=== PATIENT | female | born 1930 | race Caucasian/White ===

== ENCOUNTER 2016-06-02 10:36 | Emergency (ER) | payer OTHER, MEDICARE ==
[~2016-06-02] VITALS: Ht 172.7 cm; Wt 104.3 kg
--- NOTE | 2016-06-02 11:11 | ED UPPER/LOWER EXTREMITY COMPL ---
History of Present Illness General Chief Complaint: Lower Extremity Problems Stated Complaint: LT KNEE PAIN Source: patient Exam Limitations: no limitations Vital Signs & Intake/Output Vital Signs & Intake/Output Vital Signs Date Time Temp Pulse Resp B/P Pulse O2 O2 Flow FiO2 Ox Delivery Rate 06/02 1242 97.9 81 18 185/100 97 Room Air 06/02 1043 97.7 83 20 197/100 97 Room Air Allergies Coded Allergies: No Known Drug Allergies (06/02/16) Reconcile Medications Hydrocodone/Acetaminophen (Vicodin 5-300 MG Tablet) 5 MG-300 MG TABLET 1 TAB PO BID PRN PAIN DO NOT TAKE THIS MEDICATION WHILE OPERATING MOTOR VEHICLES Triage Note: C/O LEFT KNEE PAIN X 3 DAYS. DENIES FALL OR INJURY. LEFT KNEE REPLACEMENT 2012. Triage Nurses Notes Reviewed? yes Onset: Gradual Duration: constant Timing: recent history Severity: severe Severity Numbers: 9 Method of Injury: unknown Modifying Factors: Worsens With: movement. HPI: Patient is a 86-year-old female with a past medical history of left knee replacement performed by performed at [facility] remotely who since emergency and that she had a gradual onset of a three-day history of worsening left knee pain. Patient denies any mechanism of injury denies any trauma or etiology of symptoms. Denies any increased physical activity in which she does use a walker for fall prevention. Patient has been taking Aleve with minimal relief of symptoms. Denies any hip pain ankle pain and leg swelling and is otherwise without complaints. Patient states at rest she has no pain (ERIN HIDALGO) Past History Travel History Traveled to [place] past 21 day No Medical History Any Pertinent Medical History? see below for history Musculoskeletal: osteoarthritis Surgical History Surgical History: non-contributory Psychosocial History What is your primary language Divehi Tobacco Use: Never used ETOH Use: denies use Family History Hx Contributory? No (ERIN HIDALGO) Review of Systems Review of Systems Constitutional: Reports: no symptoms. EENTM: Reports: no symptoms. Respiratory: Reports: no symptoms. Cardiovascular: Reports: no symptoms. Gastrointestinal/Abdominal: Reports: no symptoms. Genitourinary: Reports: no symptoms. Musculoskeletal: Reports: see HPI, joint pain. Skin: Reports: no symptoms. Neurological/Psychological: Reports: no symptoms. Hematologic/Endocrine: Reports: no symptoms. Immunological: Reports: no symptoms. All Other Systems: Reviewed and Negative (ERIN HIDALGO) Physical Exam Physical Exam General Appearance: no apparent distress, alert, comfortable Neurologic/Tendon: normal sensation, normal motor functions, normal tendon functions, responds to pain, no evidence tendon injury, no pulse deficit Skin: intact, normal color, warm/dry Comments: Well-developed well-nourished person in no acute distress HEENT: Normal EENT exam,. Neck: Supple, no lymphadenopathy, normal range of motion without pain or tenderness Back: Nontender, no CVA tenderness. Cardiovascular: Regular rate and rhythms no murmurs rubs or gallops, normal JVP Respiratory: Chest nontender. No respiratory distress.breath sounds clear to auscultation bilaterally Abdomen: Soft, nontender nondistended, no appreciable organomegaly. Normal bowel sounds. No ascites Extremity: No edema, no calf tenderness to palpation, normal and equal pulses. Bilateral hip nontender normal inspection full active range of motion Left knee normal inspection medial and lateral joint line point tenderness noted , full active range of motion noted negative valgus stress test negative varus stress test negative anterior drawer test negative posterior drawer test full active range of motion Left leg dermatomes intact pedal pulse +2 Neuro: Alert oriented x3, motor sensory normal, Skin: No appreciable rash on exposed skin, skin is warm and dry. Psych: Mood and affect is normal, memory and judgment is normal. (ERIN HIDALGO) Progress Differential Diagnosis: arterial insufficiency, compartment syndrome, contusion, dislocation, DVT, fracture, gout, septic arthritis, sprain, tendon injury Plan of Care: Orders Procedure Date/time Status CASE MANAGEMENT CONSULT 06/02 1246 Active No osseous injuries noted on x-rays patient had stated gait noted by me Patient was given copy of x-rays for follow-up with orthopedic doctor. Patient was strongly advised to continue and always use her walker for fall prevention. Discussed patient with case management who will provide patient with home physical therapy. Patient was strongly advised to follow up with orthopedic doctor if she has an appointment coming up (ERIN HIDALGO) Diagnostic Imaging: Viewed by Me: Radiology Read. Radiology Impression: no fracture Comments: PATIENT: CHARLEEN FISH PRESENT AGE: 86 PATIENT ACCOUNT NO: [id number] : 32 LOCATION: [facility] ORDERING PHYSICIAN: ERIN PEREIRA SERVICE DATE: 06/02/16 EXAM TYPE: RAD - XRY-KNEE, LEFT EXAMINATION: XR KNEE, LEFT CLINICAL INFORMATION: Left knee pain COMPARISON: Left tibia and fibula 07/30/2014. TECHNIQUE: Four views of the left knee. FINDINGS: Moderate soft tissue swelling is identified medially. Plate and screws in the distal left femur are partially imaged with a least one cerclage wire seen. Bridging callus is seen across the inferior aspect of the distal femoral fracture. A left total knee arthroplasty is identified with the 3 components in anatomic alignment. No acute osseous abnormality. There is a trace knee effusion. IMPRESSION: Soft tissue swelling. Partial visualization of buttress plate, screws and cerclage wire in the distal left femur as well as a left total knee arthroplasty, similar to 07/30/2014. No acute osseous abnormalities are seen. (ERIN HIDALGO) Departure Departure Disposition: HOME OR SELF CARE Condition: Stable Clinical Impression Primary Impression: Left knee pain Referrals: NATE CAMERON,SHARI Johnson (PCP/Family) Additional Instructions: As discussed always use your home walker for fall prevention. Begin icing the area directly 20 minutes every 2 hours. Begin and continue [id number] Aleve for pain and inflammation and begin the prescription of Vicodin for breakthrough pain relief. If symptoms worsen return to emergency room. Follow- up with the orthopedic doctor as you have an appointment Please provide the orthopedic doctor with a copy of the x-ray results from the emergency room Departure Forms: Customer Survey General Discharge Information Prescriptions: Current Visit Scripts Hydrocodone/Acetaminophen (Vicodin 5-300 MG Tablet) 1 TAB PO BID PRN PAIN #10 TAB DO NOT TAKE THIS MEDICATION WHILE OPERATING MOTOR VEHICLES (ERIN HIDALGO) PA/TRAFFIC ATTENDANT Co-Sign Statement Statement: ED Attending supervision documentation- [X] I saw and evaluated the patient. I have also reviewed all the pertinent lab results and diagnostic results. I agree with the findings and the plan of care as documented in the PA's/TRAFFIC ATTENDANT's documentation. [X] I have reviewed the ED Record and agree with the PA's/TRAFFIC ATTENDANT's documentation. [] Additions or exceptions (if any) to the PAs/TRAFFIC ATTENDANT's note and plan are summarized below: [] (REGAN CAMERON,DAI)
--- NOTE | 2016-06-02 12:11 | RADIOLOGY REPORT ---
EXAMINATION: XR KNEE, LEFT CLINICAL INFORMATION: Left knee pain COMPARISON: Left tibia and fibula 07/30/2014. TECHNIQUE: Four views of the left knee. FINDINGS: Moderate soft tissue swelling is identified medially. Plate and screws in the distal left femur are partially imaged with a least one cerclage wire seen. Bridging callus is seen across the inferior aspect of the distal femoral fracture. A left total knee arthroplasty is identified with the 3 components in anatomic alignment. No acute osseous abnormality. There is a trace knee effusion. IMPRESSION: Soft tissue swelling. Partial visualization of buttress plate, screws and cerclage wire in the distal left femur as well as a left total knee arthroplasty, similar to 07/30/2014. No acute osseous abnormalities are seen.
[2016-06-02] MEDS ORDERED: VICODIN 5-3001 EACH PO (12:32)
[2016-06-02 12:42] VITALS: BP 185/100
== END 2016-06-02 12:44 ==
LOC: ERH 10:36
DX: M25.562 Pain in left knee (principal)
CPT/HCPCS: 73560-LT